=== PATIENT | male | born 1930 | race Caucasian/White ===

== ENCOUNTER → 2017-05-16 | Outpatient (CLI) | payer OTHER, MEDICARE ==
--- NOTE | ~2017-05-16 | 2DMMODE ---
[facility] [address] [place] [address] 2 D/M-MODE ECHOCARDIOGRAM Name: ROSALBA GORDON POLI [id number] Admission: 05/16/17 Attend Phys: Manas Rushing Discharge: Date of : 30 Date of Service: 05/16/17 1552 Report #: [id number] THIS REPORT FOR: //name// APPROVED REPORT Study performed: 05/16/2017 12:58:48 EXAM: Comprehensive 2D, Doppler, and color-flow Echocardiogram Patient Location: Out-Patient Room #: Echo lab Status: routine BSA: 2.19 HR: 59 bpm BP: 160/86 mmHg Other Information Study Quality: Adequate Indications Abnormal ECG 2D Dimensions RVDd: 40.00 mm LVEF(%): 55.10 (>50%) IVSd: 10.46 (7-11mm) LVOT Diam: 19.77 (18-24mm) LVDd: 41.10 mm PWd: 9.63 (7-11mm) Ascending Ao: 32.88 (22-36mm) LVDs: 29.48 (25-40mm) Aortic Root: 28.56 mm IVC: 24.00 mm May[facility]'s LVEF: 55.10 % Volumes Left Atrial Volume (Systole) Single Plane 4CH: 71.62 mL Single Plane 2CH: 58.15 mL LA ESV Index: 35.00 mL/m2 Aortic Valve AoV Peak Deric.: 1.42 m/s AO Peak Gr.: 8.10 mmHg LVOT Max P.00 mmHg LVOT Max V: 1.00 m/s GEORGE Vmax: 2.16 cm2 Mitral Valve E/A Ratio: 0.8 MV Decel. Time: 272.96 ms MV E Max Deric.: 0.78 m/s [facility] [place] [address] 2 D/M-MODE ECHOCARDIOGRAM Name: ROSALBA GORDON Room #: REG Jeremiah#: [id number] Admission: 05/16/17 Attend Phys: Manas Rushing Discharge: Date of : 30 Date of Service: 05/16/17 1552 Report #: [id number] MV A Deric.: 0.93 m/s MV PHT: 79.16 ms IVRT: 96.89 ms Pulmonary Valve PV Peak Deric.: 1.03 m/s PV Peak Gr.: 4.29 mmHg Pulmonary Vein P Vein S: 0.47 m/s P Vein A: 0.26 m/s P Vein D: 0.37 m/s P Vein A Dur.: 120.0 msec P Vein S/D Ratio: 1.27 Tricuspid Valve TR Peak Deric.: 2.54 m/s TR Peak Gr.: 25.83 mmHg PA Pressure: 36.00 mmHg Left Ventricle The left ventricle is normal size. There is normal left ventricular wall thickness. The left ventricular systolic function is normal. The left ventricular ejection fraction is within the normal range. LVEF is 50-55%. Grade I - abnormal relaxation pattern. Right Ventricle The right ventricle is normal size. The right ventricular systolic function is normal. Atria Left atrium is dilated. Right atrium is dilated. Aortic Valve The aortic valve is normal in structure. Aortic valve is calcified. No aortic regurgitation is present. There is no aortic valvular stenosis. Mitral Valve The mitral valve is normal in structure. Trace to mild mitral regurgitation. No evidence of mitral valve stenosis. Tricuspid Valve The tricuspid valve is normal in structure. There is trace to mild tricuspid regurgitation. Estimated PAP 36 mmHg.. There is mild pulmonary hypertension. Pulmonic Valve The pulmonary valve is normal in structure. Trace pulmonic [facility] [address] [place] [address] 2 D/M-MODE ECHOCARDIOGRAM Name: ROSALBA GORDON [facility]: [id number] Admission: 05/16/17 Attend Phys: Manas Rushing Discharge: Date of : 30 Date of Service: 05/16/17 1552 Report #: [id number] regurgitation. Great Vessels The aortic root is normal in size. IVC is dilated and collapses >50% with inspiration. Pericardium There is no pericardial effusion. <Conclusion> The left ventricle is normal size. LVEF is 50-55%. Left atrium is dilated. Right atrium is dilated. The aortic valve is normal in structure. Aortic valve is calcified. The mitral valve is normal in structure. Trace to mild mitral regurgitation. The tricuspid valve is normal in structure. There is trace to mild tricuspid regurgitation. Estimated PAP 36 mmHg.. There is mild pulmonary hypertension. The pulmonary valve is normal in structure. Trace pulmonic regurgitation. There is no pericardial effusion. <ELECTRONICALLY SIGNED> By: Manas Jo MD 05/16/17 1552 1552 155 Manas Jo MD /INF
== END ==
LOC: NUC 09:18
DX: I27.20 Pulmonary hypertension, unspecified (principal); R94.31 Abnormal electrocardiogram [ECG] [EKG]; J44.9 Chronic obstructive pulmonary disease, unspecified; E78.5 Hyperlipidemia, unspecified; Z87.891 Personal history of nicotine dependence

== ENCOUNTER 2017-07-28 08:49 | Observation (INO) | payer OTHER, MEDICARE ==
[~2017-07-28] VITALS: Ht 180.3 cm; Wt 92.5 kg
--- NOTE | ~2017-07-28 | CATHLAB ---
[facility] [place] [address] INVASIVE PROCEDURE REPORT Name: ROSALBA GORDON Room #: 202-P [facility]#: [id number] Admission: 07/28/17 Attend Phys: Manas Rushing Discharge: 07/29/17 Date of : 30 Date of Service: 07/31/17 1301 Report #: [id number] THIS REPORT FOR: //name// APPROVED REPORT Study performed: 07/28/2017 11:13:05 Patient Status: Out-Patient Room #: Event Personnel: Manas Jo Tank Truck Loader, Nila Jaeger Monitor, Patrick York Penny, Wes RN, Love Downing RN RN Exam: Insertion of Dual Chamber Permanent Pacemaker, supervision of conscious sedation Indications: symptomatic bradycardia with intermittent A-V block The patient is a 87 year-old male with a history of sick sinus syndrome with symptomatic bradycardia fatigue lightheadedness and intermittent high grade AV block. Conscious Sedation Start time: 11:41 End Time: 12:36 Versed 2 mg Demerol 25 mg IV push Implanted Devices: 1. Generator: [employer] medical model PM 2240 serial number [id number] 2. Right atrial lead: [employer] medical model 2088 TC/52 serial number [id number] 3. Ventricular lead [employer] [facility] 2087 TC/58 serial number [id number] Procedure The patient underwent informed consent. We discussed the details of the procedure including the risks, which include, but not limited to bleeding, infection, vascular damage, cardiac perforation, and pneumothorax. He understood these risks and was willing to proceed. As such, he was brought to the EP/Cardiac Catheterization laboratory in a fasting and sedated state and prepped and draped in a The patient underwent conscious sedation and local anesthesia, with no anesthesia related complications. The patient was brought to the EP/Cardiac Catheterization laboratory and the left chest and shoulder were prepped and draped in a sterile manner. During this case, Fluoroscopy and no contrast were used for imaging. [address] [address] INVASIVE PROCEDURE REPORT Name: EVANROSALBA POLI Room #: 202-P [facility] ..#: [id number] Admission: 07/28/17 Attend Phys: Manas Rushing Discharge: 07/29/17 Date of : 30 Date of Service: 07/31/17 1301 Report #: [id number] The left subclavian region was infiltrated with 2% Lidocaine subcutaneous anesthesia. A transverse incision was made in the left upper chest cavity. The subcutaneous pocket was formed via blunt dissection. Percutaneous venous access was achieved and an introducer sheath was inserted into the left Subclavian vein. Sheaths were positions using the modified Seldinger technique Through the introducer sheaths the atrial and ventricular lead wires were positioned in the right atrial appendage and right ventricular apex respectively. Capturing and sensing thresholds were verified. Electrode Parameters P Wave: 2.0 mV R Wave: 13.1 Atrial Threshold: 1.0V @ 1.0ms Ventricular Threshold: 0.4V @ 0.4ms Atrial Resistance: 513 omhs Ventricular Resistance: 630 omhs Dual Chamber The atrial and ventricular leads were then secured using 0 nonabsorbable sutures. The subcutaneous pocket was irrigated with ancef antibiotic solution.The atrial and ventricular leads were attached to the appropriate receptacles on the pulse generator and set screws firmly tightened to insure adequate contact and stability. The lead and pulse generator were placed into the subcutaneous pocket. Sharp and sponge counts were confirmed to be correct. At this time the pocket was closed subcutaneously with a running locking 0 nonabsorbable suture and the skin was closed with a 3.0 Vicryl in a subcuticular stitch. The operative site was dressed in sterile fashion with steri strips,4x4, and Opsite and the patient was transferred to the floor in stable condition. Complications The patient tolerated the procedure well and there were no complications associated with the procedure. Conclusion 1. Successful implantation of a dual chamber [employer] pacemaker <ELECTRONICALLY SIGNED> By: Manas Jo MD 07/31/17 1301 1301 1301 Manas Jo MD /INF
[2017-07-28] MEDS ORDERED: DIGOXIN250 MCG PO (09:24)
[2017-07-28] MEDS ORDERED: CLOTRIMAZOLE 1%15 G1 TOP (09:24)
[2017-07-28] MEDS ORDERED: CARTIA XT180 M1 PO (09:24)
[2017-07-28] MEDS ORDERED: ELIQUIS2.5 MG PO (09:25)
[2017-07-28] MEDS ORDERED: FLONASE 0.05%50 MCG NASAL (09:26)
[2017-07-28] MEDS ORDERED: LEXAPRO 10 MG T10 M1 PO (09:26)
[2017-07-28] MEDS ORDERED: SYNTHROID75 MCG PO (09:27)
[2017-07-28] MEDS ORDERED: NYSTATIN1 EA10 TOP (09:27)
[2017-07-28] MEDS ORDERED: COZAAR 25 MG TA25 M1 PO (09:27)
[2017-07-28] MEDS ORDERED: PRAVACHOL20 MG PO (09:28)
[2017-07-28] MEDS ORDERED: VENTOLIN HFA 1818 GM INH (09:28)
[2017-07-28] MEDS ORDERED: VITAMIN B122500 MCG PO (09:29)
[2017-07-28 09:37] VITALS: BP 116/71
[2017-07-28 09:41] LABS: BASOPHILS 1.4 % (0.0-2.0); EOSINOPHILS 4.7 % (0.0-3.0); HEMATOCRIT 35.8 % (42.0-52.0); HEMOGLOBIN 12.2 gm/dL (14.0-18.0); MCH 30.7 pg (26.0-34.0); MCV 90.3 fL (80.0-100.0); MONOCYTES 8.9 % (1.0-8.0); PLATELET COUNT 307 thou/uL (150-400); RBC 3.97 mil/uL (4.50-6.00); RDW 14.1 % (10.5-14.5); WBC 7.5 thou/uL (4.0-11.0)
[2017-07-28 09:48] LABS: CALCIUM 8.7 mg/dL (8.5-10.1); CREATININE 1.5 mg/dL (0.7-1.3)
[2017-07-28 13:20] VITALS: BP 116/71
[2017-07-28 15:25] VITALS: BP 142/80
[2017-07-28 19:13] VITALS: BP 120/77
[2017-07-29 05:12] VITALS: BP 198/136
[2017-07-29 07:37] VITALS: BP 152/87
[2017-07-29 10:36] VITALS: BP 152/87
[2017-07-29 11:25] VITALS: BP 124/70
== END 2017-07-29 12:19 | disposition home or self-care (01) ==
LOC: CATH 08:49 → 2N 13:15
PROVIDERS: Internal Medicine
DX: I44.30 Unspecified atrioventricular block (principal); R00.1 Bradycardia, unspecified; I49.5 Sick sinus syndrome; R53.83 Other fatigue; R42 Dizziness and giddiness; Z95.0 Presence of cardiac pacemaker; Z45.018 Encounter for adjustment and management of other part of cardiac pacemaker